=== PATIENT | male | born 1970 | race Two or more races ===

== ENCOUNTER 2020-04-16 09:25 | Emergency (ER) | payer OTHER ==
--- NOTE | 2020-04-16 09:26 | EDM.PDOC ---
"ED HPI GENERAL MEDICAL PROBLEM - General Chief Complaint: Neuro Symptoms/Deficits Stated Complaint: STROKE Time Seen by Provider: 04/16/20 09:26 Source of Information: Reports: Patient, Old Records, RN, RN Notes Reviewed History Limitations: Reports: No Limitations - History of Present Illness INITIAL COMMENTS - FREE TEXT/NARRATIVE: Pt presents to ED via POV with c/o onset of right sided racial drooping yesterday evening. Pt states that he didn't notice the facial droop, but his coworkers noticed it this last night. Pt states that this morning he noticed that his left eye was able to open and close normally, but his right eye won't completely close. Pt denies headache, facial or eye pain, visual changes, sinus congestion, sore throat, toothache, difficulty with speech or swallowing, chest pain, rapid heart rate, palpitations, or unilateral motor weakness of the arms or legs. Onset: Unknown/Unsure Onset Date: 04/15/20 (Unknown last known well time, pt was alone until coworkers noticed symptoms) Duration: Constant Location: Reports: Face Quality: Reports: Other (Denies pain) Severity: Moderate Improves with: Reports: None Worsens with: Reports: None Associated Symptoms: Reports: No Other Symptoms - Related Data Allergies Allergy/AdvReac Type Severity Reaction Status Date / Time No Known Allergies Allergy Verified 04/16/20 09:32 Home Meds: Home Meds . [No Known Home Meds] 04/16/20 [History] Past Medical History - Past Health History Medical/Surgical History: Denies Medical/Surgical History Social & Family History - Family History Family Medical History: No Pertinent Family History - Living Situation & Occupation Occupation: Employed ED ROS GENERAL - Review of Systems Review Of Systems: Comprehensive ROS is negative, except as noted in HPI. ED EXAM, NEURO - Physical Exam Exam: See Below Exam Limited By: No Limitations General Appearance: Alert, WD/WN, No Apparent Distress Eye Exam: Right Eye: Proptosis (Rt eye does not fully close), Bilateral Eye: EOMI, PERRL Ears: Normal External Exam, Normal Canal, Hearing Grossly Normal, Normal TMs Nose: Normal Inspection, Normal Mucosa, No Blood Throat/Mouth: Normal Oropharynx, Normal Voice, No Airway Compromise, Other (Rt facial droop affecting the corner of the mouth. ) Head Exam: Atraumatic, Normocephalic Neck: Normal Inspection, Supple, Non-Tender, Full Range of Motion Respiratory/Chest: No Respiratory Distress, Lungs Clear, Normal Breath Sounds, No Accessory Muscle Use, Chest Non-Tender Cardiovascular: Regular Rate, Rhythm, No Edema, No Murmur GI/Abdominal: Normal Bowel Sounds, Soft, Non-Tender, No Organomegaly, No Distention, No Abnormal Bruit, No Mass Neurological: Alert, Normal Mood/Affect, Normal Dorsiflexion, Normal Plantar Flexion, Normal Gait, Normal Reflexes, No Motor/Sensory Deficits, Oriented x 3, Other (Right facial droop, spares forehead and tongue, normal speech and sw allowing. NIH score 1.) Back Exam: Normal Inspection Extremities: Normal Inspection, Normal Range of Motion, Non-Tender, No Pedal Edema, Normal Capillary Refill Psychiatric: Normal Affect, Normal Mood Skin Exam: Warm, Dry, Intact, Normal Color, No Rash #1 Interpretation EKG Date: 04/16/20 Time: 09:45 Rhythm: Other (Sinus mehreen) Rate (Beats/Min): 50 [place]: Normal P-Wave: Present QRS: Normal ST-T: Normal QT: Normal Comparison: NA - No Prior EKG Course - Vital Signs Last Recorded V/S: Last Vital Signs Temp 98.3 F 04/16/20 09:36 Pulse 61 04/16/20 09:36 Resp 16 04/16/20 09:36 BP 118/68 04/16/20 09:36 Pulse Ox 100 04/16/20 09:36 - Orders/Labs/Meds Orders: Active Orders 24 hr Category Date Time Status Blood Glucose Check, Bedside [RC] ONETIME Care 04/16/20 09:27 Active EKG 12 Lead [EKG Documentation Completion] [RC] STAT Care 04/16/20 09:28 Active Peripheral IV Care [RC] . DIRECTED Care 04/16/20 09:29 Active Sodium Chloride 0.9% [Saline Flush] Med 04/16/20 09:29 Active 10 ml FLUSH ASDIRECTED PRN Peripheral IV Insertion Adult [OM.PC] Stat Oth 04/16/20 09:28 Ordered Medication Orders Sodium Chloride (Saline Flush) 10 ml FLUSH ASDIRECTED PRN PRN Reason: Keep Vein Open Last Admin: 04/16/20 09:49 Dose: 10 ml Documented by: [email or web address] Labs: Laboratory Tests 04/16/20 04/16/20 04/16/20 Range/Units 09:34 09:34 09:34 WBC 9.0 (5.0-10.0) 10^3/uL RBC 4.93 (4.6-6.2) 10^6/uL Hgb 15.4 (14.0-18.0) g/dL Hct 44.4 (40.0-54.0) % MCV 90.1 (80-100) fL MCH 31.2 (27.0-34.0) pg MCHC 34.7 (33.0-35.0) g/dL Plt Count 431 (150-450) 10^3/uL Neut % (Auto) 44.4 (42.2-75.2) % Lymph % (Auto) 36.9 (20.5-50.1) % [place] % (Auto) 8.2 H (2-8) % Eos % (Auto) 9.4 H (1.0-3.0) % Baso % (Auto) 1.1 H (0.0-1.0) % PT 9.2 (9.0-12.0) SEC INR 1.0 (0.9-1.2) APTT 23.3 (22.0-34.0) SEC Sodium 139 (136-145) mmol/L Potassium 4.0 (3.5-5.1) mmol/L Chloride 101 (98-107) mmol/L Carbon Dioxide 29 (21-32) mmol/L Anion Gap 13.0 (7-13) mEq/L BUN 20 H (7-18) mg/dL Creatinine 1.22 (0.70-1.30) mg/dL Est Cr Clr Drug Dosing 69.30 mL/min Estimated GFR (MDRD) > 60 BUN/Creatinine Ratio 16.4 (No establ ref range) Glucose 113 H (74-99) mg/dL Calcium 8.5 (8.5-10.1) mg/dL Total Bilirubin 0.5 (0.2-1.0) mg/dL AST 36 (15-37) U/L ALT 53 (16-63) U/L Alkaline Phosphatase 66 (46-116) U/L Troponin I < 0.017 (0.000-0.056) ng/mL C-Reactive Protein < 0.2 (0.0-0.9) mg/dL Total Protein 7.3 (6.4-8.2) g/dL Albumin 4.0 (3.4-5.0) g/dL Globulin 3.3 Albumin/Globulin Ratio 1.2 Meds: Medications Generic Name Dose Route Start Last Admin Trade Name Freq PRN Reason Stop Dose Admin Sodium Chloride 10 ml 04/16/20 09:29 04/16/20 09:49 Saline Flush FLUSH 10 ml ASDIRECTED PRN Administration Keep Vein Open - Radiology Interpretation Free Text/Narrative:: [facility] [place] [facility] Final Radiology Report Call: [phone] assistance Online chat: [email or web address] Name: ELZA CORDERO Age: 49Years M Date: 04/16/2020 SSN: -- : [id number] Study: CT HEAD WO CONT Requesting Physician: ROSANGELA WRIGHT Images: 138 Addl Studies: Provided Clinical History: STROKE CODE: right facial droop Contrast: Without Contrast Medium: Contrast Amount: Contrast Method: Page 1 of 2 PROCEDURE INFORMATION: Exam: CT Head Without Contrast Exam date and time: 04/16/2020 9:33 AM Age: 49 years old Clinical indication: Weakness, facial; Additional info: Stroke code: Right facial droop TECHNIQUE: Imaging protocol: Computed tomography of the head without contrast. Radiation optimization: All CT scans at this facility use at least one of these dose optimization techniques: automated exposure control; mA and/or kV adjustment per patient size (includes targeted exams where dose is matched to clinical indication); or iterative reconstruction. Other technique: STROKE PROTOCOL was implemented. COMPARISON: No relevant prior studies available. FINDINGS: Brain: No acute brain parenchymal abnormality. No intracranial hemorrhage. No extraaxial fluid collections. Cerebral ventricles: No hydrocephalus. Bones/joints: No calvarial fracture. Paranasal sinuses: There is multifocal mucoperiosteal thickening, but no fluid in the visualized paranasal sinuses. Mastoid air cells: The mastoid air cells are aerated. Soft tissues: No acute soft tissue abnormality. IMPRESSION: No acute intracranial abnormality. ASSESSMENT: ASPECTS ([place] Stroke Program Early CT Score) is 10. ELZA CORDERO | Final Radiology Report CONFIDENTIALITY STATEMENT This report is intended only for use by the referring physician, and only in accordance with law. If you received this in error, call [phone]. Page 2 of 2 Thank you for allowing us to participate in the care of your patient. Dictated and Authenticated by: Raoul Keith MD 04/16/2020 9:46 AM Central Time ([place] & [place]) - Re-Assessments/Exams Free Text/Narrative Re-Assessment/Exam: 04/16/20 10:22 No evidence of CVA on exam or by diagnostic work up. Pt most likely has [place] Palsy. Pt to treat with Valtrex and Prednisone and have him f/u in clinic next week. Departure - Departure Time of Disposition: 10:23 Disposition: Home, Self-Care 01 Condition: Good Clinical Impression: Daley's palsy - Discharge Information *PRESCRIPTION DRUG MONITORING PROGRAM REVIEWED*: Not Applicable *COPY OF PRESCRIPTION DRUG MONITORING REPORT IN PATIENT JOSE: Not Applicable Instructions: [place] Palsy, Adult Forms: ED Department Discharge Additional Instructions: Rx: Valtrex 1g Rx: Prednisone 20mg Follow up in clinic in one week for recheck. Sepsis Event Note (ED) - Focused Exam Vital Signs: Vital Signs Temp Pulse Resp BP Pulse Ox 04/16/20 09:36 98.3 F 61 16 118/68 100 - My Orders Last 24 Hours: My Active Orders 04/16/20 09:27 Blood Glucose Check, Bedside [RC] ONETIME 04/16/20 09:28 EKG 12 Lead [EKG Documentation Completion] [RC] STAT Peripheral IV Insertion Adult [OM.PC] Stat 04/16/20 09:29 Peripheral IV Care [RC] . DIRECTED Sodium Chloride 0.9% [Saline Flush] 10 ml FLUSH ASDIRECTED PRN - Assessment/Plan Last 24 Hours: My Active Orders 04/16/20 09:27 Blood Glucose Check, Bedside [RC] ONETIME 04/16/20 09:28 EKG 12 Lead [EKG Documentation Completion] [RC] STAT Peripheral IV Insertion Adult [OM.PC] Stat 04/16/20 09:29 Peripheral IV Care [RC] . DIRECTED Sodium Chloride 0.9% [Saline Flush] 10 ml FLUSH ASDIRECTED PRN"
[2020-04-16] MEDS ORDERED: Sodium Chloride 0.9% 10 ML Syringe FLUSH PRN (09:29)
--- NOTE | 2020-04-16 09:47 | CT ---
PROCEDURE INFORMATION: Exam: CT Head Without Contrast Exam date and time: 04/16/2020 9:33 AM Age: 49 years old Clinical indication: Weakness, facial; Additional info: Stroke code: Right facial droop TECHNIQUE: Imaging protocol: Computed tomography of the head without contrast. Radiation optimization: All CT scans at this facility use at least one of these dose optimization techniques: automated exposure control; mA and/or kV adjustment per patient size (includes targeted exams where dose is matched to clinical indication); or iterative reconstruction. Other technique: STROKE PROTOCOL was implemented. COMPARISON: No relevant prior studies available. FINDINGS: Brain: No acute brain parenchymal abnormality. No intracranial hemorrhage. No extraaxial fluid collections. Cerebral ventricles: No hydrocephalus. Bones/joints: No calvarial fracture. Paranasal sinuses: There is multifocal mucoperiosteal thickening, but no fluid in the visualized paranasal sinuses. Mastoid air cells: The mastoid air cells are aerated. Soft tissues: No acute soft tissue abnormality. IMPRESSION: No acute intracranial abnormality. ASSESSMENT: ASPECTS ([place] Stroke Program Early CT Score) is 10.
[2020-04-16 10:17] LABS: PTT,PARTIAL THROMBOPLSTIN TIME 23.3 SEC (22.0-34.0)
[2020-04-16 10:18] LABS: CHLORIDE,CL 101 mmol/L (98-107); SODIUM,NA 139 mmol/L (136-145)
== END 2020-04-16 10:31 | disposition home or self-care (01) ==
LOC: DL.ED 09:25
DX: G51.0 Bell's palsy (principal); R29.701 NIHSS score 1; R00.1 Bradycardia, unspecified
CPT/HCPCS: 36415; 70450; 80053; 82962; 84484; 85025; 85610; 85730; 86140; 93005; 93010; 99283; 99284-25

== ENCOUNTER 2021-05-04 13:20 | Emergency (ER) | payer OTHER ==
[2021-05-04] MEDS ORDERED: Sodium Chloride 0.9% 1,000 ML IV ONE (14:16)
[2021-05-04 14:26] LABS: ANION GAP 16.2 mEq/L (7-13); CHLORIDE,CL 104 mmol/L (98-107); SODIUM,NA 140 mmol/L (136-145)
[2021-05-04] MEDS ORDERED: Potassium Chloride 10 MEQ Tab.ER PO ONE (14:45)
== END 2021-05-04 14:58 | disposition home or self-care (01) ==
LOC: DL.ED 13:20
DX: R19.7 Diarrhea, unspecified (principal)
CPT/HCPCS: 36415; 80053; 82150; 83690; 85025; 99284; A9270